=== PATIENT | female | born 1950 | race Caucasian/White ===

== ENCOUNTER 2021-06-07 12:49 | Outpatient (REF) | payer BC, SELFPAY | END 2021-06-07 12:50 | disposition home or self-care (01) | LOC: HO.BBR 12:49 | PROVIDERS: PCP Internal Medicine; Visit Provider Internal Medicine | DX: Z13.89 Encounter for screening for other disorder (principal) ==

== ENCOUNTER 2021-08-08 10:04 | Outpatient (REF) | payer MEDICARE, SELFPAY | END 2021-08-08 10:05 | disposition home or self-care (01) | LOC: HO.BBR 10:04 | PROVIDERS: Visit Provider Internal Medicine | DX: Z13.89 Encounter for screening for other disorder (principal) ==

== ENCOUNTER 2021-10-19 13:07 | Outpatient (REF) | payer MEDICARE, SELFPAY | END 2021-10-19 13:08 | disposition home or self-care (01) | LOC: HO.BBR 13:07 | PROVIDERS: Visit Provider Internal Medicine | DX: Z13.89 Encounter for screening for other disorder (principal) ==

== ENCOUNTER 2021-10-27 10:10 | Outpatient (REF) | payer MEDICARE, SELFPAY | END 2021-10-27 10:11 | disposition home or self-care (01) | LOC: HO.BBR 10:10 | PROVIDERS: Visit Provider Internal Medicine | DX: Z13.89 Encounter for screening for other disorder (principal) ==

== ENCOUNTER 2021-11-06 10:03 | Outpatient (REF) | payer MEDICARE, SELFPAY | END 2021-11-06 10:04 | disposition home or self-care (01) | LOC: HO.BBR 10:03 | PROVIDERS: Visit Provider Internal Medicine | DX: Z13.89 Encounter for screening for other disorder (principal) ==

== ENCOUNTER 2021-11-13 10:03 | Outpatient (REF) | payer MEDICARE, SELFPAY | END 2021-11-13 10:04 | disposition home or self-care (01) | LOC: HO.BBR 10:03 | PROVIDERS: Visit Provider Internal Medicine | DX: Z13.89 Encounter for screening for other disorder (principal) ==

== ENCOUNTER 2022-04-24 09:09 | Outpatient (REF) | payer MEDICARE, SELFPAY | END 2022-04-24 09:10 | disposition home or self-care (01) | LOC: HO.BBR 09:09 | PROVIDERS: Visit Provider Internal Medicine | DX: Z13.89 Encounter for screening for other disorder (principal) ==

== ENCOUNTER 2022-05-24 08:46 | Outpatient (REF) | payer MEDICARE, SELFPAY | END 2022-05-24 08:47 | disposition home or self-care (01) | LOC: HO.BBR 08:46 | PROVIDERS: Visit Provider Internal Medicine | DX: Z13.89 Encounter for screening for other disorder (principal) ==

== ENCOUNTER 2022-06-21 09:39 | Outpatient (REF) | payer MEDICARE, SELFPAY | END 2022-06-21 09:40 | disposition home or self-care (01) | LOC: HO.BBR 09:39 | PROVIDERS: Visit Provider Internal Medicine | DX: Z13.89 Encounter for screening for other disorder (principal) ==

== ENCOUNTER 2022-08-16 08:46 | Outpatient (REF) | payer MEDICARE, SELFPAY | END 2022-08-16 08:47 | disposition home or self-care (01) | LOC: HO.BBR 08:46 | PROVIDERS: Visit Provider Internal Medicine | DX: Z13.89 Encounter for screening for other disorder (principal) ==

== ENCOUNTER 2023-05-21 13:42 | Outpatient (REF) | payer MEDICARE, SELFPAY | END 2023-05-21 13:43 | disposition home or self-care (01) | LOC: HO.BBR 13:42 | PROVIDERS: Visit Provider Internal Medicine | DX: Z13.89 Encounter for screening for other disorder (principal) ==

== ENCOUNTER 2023-09-06 09:00 | Outpatient (REF) | payer MEDICARE, SELFPAY | END 2023-09-06 09:01 | disposition home or self-care (01) | LOC: HO.BBR 09:00 | PROVIDERS: PCP Internal Medicine; Visit Provider Internal Medicine Gastroenterology | DX: Z13.89 Encounter for screening for other disorder (principal) ==

== ENCOUNTER 2024-01-21 09:03 | Outpatient (REF) | payer MEDICARE, SELFPAY | END 2024-01-21 09:04 | disposition home or self-care (01) | LOC: HO.BBR 09:03 | PROVIDERS: PCP Internal Medicine; Visit Provider Internal Medicine Gastroenterology | DX: Z13.89 Encounter for screening for other disorder (principal) ==

== ENCOUNTER 2024-05-26 08:55 | Outpatient (REF) | payer MEDICARE, SELFPAY | END 2024-05-26 08:56 | disposition home or self-care (01) | LOC: HO.BBR 08:55 | PROVIDERS: PCP Internal Medicine; Visit Provider Internal Medicine Gastroenterology | DX: Z13.89 Encounter for screening for other disorder (principal) ==

== ENCOUNTER 2024-09-30 08:55 | Outpatient (REF) | payer MEDICARE, SELFPAY | END 2024-09-30 08:56 | disposition home or self-care (01) | LOC: HO.BBR 08:55 | PROVIDERS: PCP Internal Medicine; Visit Provider Internal Medicine Gastroenterology | DX: Z13.89 Encounter for screening for other disorder (principal) ==

== ENCOUNTER 2024-12-08 09:01 | Outpatient (REF) | payer MEDICARE, SELFPAY ==
--- OUTSIDE RECORDS SUMMARY | 2024-12-08 09:46 | XMS_ITS | Clinical Summary ---
Author Organization [facility] Address [address] [place] [address] Phone Care Team Providers Care Business Systems Administrator Name Role Phone Gustavo Kyle MD Primary Care Provider + [phone] Medications Hospital, Clinic, or Other Facility Administered Medication Ordered Dose Route Frequency Start Date End Date Status sod picosulf-mag ox-citric ac 10 mg-3.5 gram- 12 gram/175 mL solution 175 mLIndications:Change in bowel habit 175 mL oral 2 times daily 09/01/2024 Active Active Problems Problem Noted Date Diagnosed Date DM (diabetes mellitus) (CMS/HCC V24, CMS/HCC V28 ) Hemochromatosis Assessment & Plan (09/01/2024 8:43 AM EST): Getting phlebotomy [id number] PCP orders Need last lab results HTN (hypertension) Hyperlipidemia Encounters Date Type Department Care Team Description 10/07/2024 Telephone Gastroenterology - [address] [address] Mir Sales MD 09/30/2024 Telephone Gastroenterology - [address] [address] Mir Sales MD 09/29/2024 Lab Requisition [facility] - Main Lab 299 [facility] [address] Mir Sales MD Diarrhea, unspecified 09/25/2024 Telephone Gastroenterology - [address] [address] Mir Sales MD 09/21/2024 Telephone Gastroenterology - 299 [place] [address] [facility] [address] [place] [address] Mir Sales MD 09/16/2024 Telephone Gastroenterology - [address] [place] [address] Cadence Kilpatrick MA from Last 3 Months Surgical History Surgery Date Site/Laterality Comments COLONOSCOPY 03/08/2020 - 04/06/2020 10 years TOTAL KNEE ARTHROPLASTY Medical History Medical History Date Comments HTN (hypertension) DM (diabetes mellitus) (CMS/HCC V24, CMS/HCC V28 ) Hyperlipidemia Hemochromatosis Family History Medical History Relation Name Comments Breast cancer Mother's Sister Pancreatic cancer Other Relation Name Status Comments Mother's Sister Alive Other Social History Tobacco Use Types Packs/Day Years Used Date Smoking Tobacco: Never Assessed Comments No Sex and Gender Information Value Date Recorded Sex Assigned at Female 04/29/2024 10:54 AM EDT Legal Sex Female 9:22 AM EST Gender Identity Not on file Sexual Orientation Not on file Obstetrics History Para Term AB IAB SAB Ectopic Multiple Livin g Live Births 4 Last Filed Vital Signs Vital Sign Reading Time Taken Comments Blood Pressure 134/72 06/05/2022 10:12 AM EST Si tting L Arm Pulse - - Temperature - - Respiratory Rate - - Oxygen Saturation - - Inhaled Oxygen Concentration - - Weight 63 kg (139 lb) 09/01/2024 8:21 AM EST Height 167.6 cm (5' 6 ) 09/01/2024 8:21 AM EST Body Mass Index 22.44 09/01/2024 8:21 AM EST Plan of Treatment Health Maintenance Due Date Last Done Comments Diabetes: Annual GFR (Glomerular Filtration Rate) 1952 Diabetes: Annual Foot Exam 1962 Diabetes: Annual Retina Eye Exam 1962 DTaP,Tdap,and Td Vaccines (1 - Tdap) 1971 Cholesterol Screening (Lipid Panel) 06/10/2022 Depression Screening 06/10/2022 Falls Risk Assessment 06/10/2022 Hepatitis C Screening 06/10/2022 Medicare Annual Wellness Visit 06/10/2022 Social Influencers of Health Screening 06/10/2022 Diabetes: Annual Urine Albumin-Creatinine Ratio (uACR) 08/06/2024 Diabetes: Blood Sugar Control Test (HGBA1C) 08/06/2024 Hypertension/CHF/CAD Annual BMP Blood Test 08/06/2024 COVID-19 Vaccine ( season) 2024 05/30/2024, 11/17/2023, 06/13/2022, Additional history exists Breast Cancer Screening 05/25/2026 05/25/20, 05/02/2023, 04/30/2022, Additional history exists Osteoporosis Screening (Bone Density Screening) 05/25/2034 05/25/2024, 04/24/2021 Colorectal Cancer Screening: Colonoscopy 09/29/2034 09/29/2024, 03/31/2020 Pneumococcal Vaccine: 50+ Years Completed 04/06/2019, 03/17/2018 Zoster Vaccines Completed 06/13/2020, 04/12/2020 RSV Immunization Adult Patients Completed 04/16/2023 Influenza Vaccine Completed 04/27/2024, , 04/11/2022, Additional history exists HIB Vaccines Aged Out No longer eligi ble based on patient's age to complete this topic HPV Vaccines Aged Out No longer eligi ble based on patient's age to complete this topic Hepatitis A Vaccines Aged Out No long er eligible based on patient's age to complete this topic Hepatitis B Vaccines Aged Out No long er eligible based on patient's age to complete this topic IPV Vaccines Aged Out No longer eligi ble based on patient's age to complete this topic MMR Vaccines Aged Out No longer eligi ble based on patient's age to complete this topic Meningococcal ACWY Vaccine Aged Out N o longer eligible based on patient's age to complete this topic Meningococcal B Vaccine Aged Out No l onger eligible based on patient's age to complete this topic RSV Immunization Patients Under 20 months Aged Out No longer eligible based on patient's age to complete this topic Varicella Vaccines Aged Out No longer eligible based on patient's age to complete this topic Procedures Procedure Name Priority Date/Time Associated Diagnosis Comments EXTERNAL COLONOSCOPY REPORT Routine 09/29/2024 5:04 PM EDT TISSUE EXAM Routine 09/29/2024 Diarrhea, unspecified BD BONE DENSITY DXA AXIAL SKELETON Routine 05/25/2024 9:15 AM EST Other specified disorders of bone density and structure, unspecified site Asymptomatic menopausal state MG MAMMO DIGITAL SCREENING W ZI BILAT Routine 05/25/2024 9:12 AM EST Encounter for screening mammogram for breast cancer from Last 3 Months or Most Recently Relevant to Health Maintenance Results * External Colonoscopy Report (09/29/2024 5:04 PM EDT) Anatomical Region Laterality Modality Endoscopy us Historical Provider GI~PROCEDURE ORDERABLES F inal Result * Tissue Exam (09/29/2024) Final Diagnosis A. Ascending Colon, biopsy: Benign colonic mucosa with no specific pathologic change. No colitis identified. B. Descending Colon, biopsy: Benign colonic mucosa with no specific pathologic change. No colitis identified. 09/30/2024 3:36 PM EDT [facility] Clinical Information Change in bowel habits, chronic diarrhea R/O Microscopic Colitis 09/30/2024 3:36 PM EDT [facility] Gross Description A. Large Intestine, Right/Ascendin g Colon, biopsy: Labeled right colon biopsy . Received in formalin are three irregular an mucosal tissue fragments, ranging from less than 0.1 cm 0.2 cm in greatest dimension, which are wrapped in paper and submitted in toto in one cassette, three pieces, multiple levels on one slide. B. Large Intestine, Left/Descendin g Colon, biopsy: Labeled left colon biopsy . Received in formalin are three irregular an mucosal tissue fragments, ranging from 0.1 cm 0.3 cm in greatest dimension, which are wrapped in paper and submitted total one cassette, three pieces, multiple levels on one slide. ALEX 09/30/2024 3:36 PM EDT [facility] Disclaimer Unless otherwise specified, all tissue is 10% NB formalin fixed and paraffin embedded. 09/30/2024 3:36 PM EDT [facility] Tissue Descending colon structure / Unknown 09/29/2024 09/29/2024 4:21 PM EDT Tissue specimen (specimen) Descending colon structure / Unknown 09/29/2024 09/29/2024 4:21 PM EDT us Mir Sales MD LAB PATHOLOGY ORDERABLES Ping rose mary Result [facility] [address] [place] [address], * BD Bone Density DXA Axial Skeleton (05/25/2024 9:15 AM EST) Anatomical Region Laterality Modality Wrist, Hip, L-spine Bone Densito metry 05/25/2024 9:17 AM EST Addenda Addendum by Brett Pruitt MD on 05/25/2024 9:19 AM EST HISTORY: ??The patient is a 74-year-old postmenopausal female with clinical concern for metabolic bone disease. ??The patient has undergone previous bilateral hip replacement surgery. FINDINGS: ??Dual energy x-ray absorptiometry of the lumbar spine is performed. The mean bone mineral density at L1-2 is 1.261 gm/cm2 which is 108% of that of young normals and 133% of that of age matched controls. This yields a T-score of 0.8 and a Z-score of 2.6 and there is therefore no evidence of osteoporosis or osteopenia here. IMPRESSION: There is no evidence of osteoporosis or osteopenia. Code 93715 CT Teleradiology -------- FINAL REPORT -------- Dictated By: Brett Pruitt Dictated Date: 05/25/2024 09:17 ET Assigned Physician: Brett Pruitt Reviewed and Electronically Signed By: Brett Pruitt Signed Date: 05/25/2024 09:19 ET Workstation ID: [id number] Transcribed By: Self Edit Transcribed Date: 05/25/2024 09:17 ET Impressions 05/25/2024 9:19 AM EST There is no evidence of osteoporosis or osteopenia. Code 62212 CT Teleradiology -------- FINAL REPORT -------- Dictated By: Brett Pruitt Dictated Date: 05/25/2024 09:17 ET Assigned Physician: Brett Pruitt Reviewed and Electronically Signed By: Brett Pruitt Signed Date: 05/25/2024 09:19 ET Workstation ID: [id number] Transcribed By: Self Edit Transcribed Date: 05/25/2024 09:17 ET Narrative 05/25/2024 9:19 AM EST HISTORY: ??The patient is a 74-year-old postmenopausal female with clinical concern for metabolic bone disease. ??The patient has undergone previous bilateral hip replacement surgery. FINDINGS: ??Dual energy x-ray absorptiometry of the lumbar spine is performed. The mean bone mineral density at L1-2 is 1.261 gm/cm2 which is 108% of that of young normals and 133% of that of age matched controls. This yields a T-score of 0.8 and a Z-score of 2.6 and there is therefore no evidence of osteoporosis or osteopenia here. Procedure Note Brett Pruitt MD - 05/25/2024 HISTORY: The patient is a 74-year-old postmenopausal female with clinicalconcern for metabolic bone disease. The patient has undergone previousbilateral hip replacement surgery. FINDINGS: Dual energy x-ray absorptiometry of the lumbar spine isperformed. The mean bone mineral density at L1-2 is 1.261 gm/cm2 which is108% of that of young normals and 133% of that of age matched controls.This yields a T-score of 0.8 and a Z- score of 2.6 and there is thereforeno evidence of osteoporosis or osteopenia here. IMPRESSION: There is no evidence of osteoporosis or osteopenia. Code 40443 CT Teleradiology -------- FINAL REPORT -------- Dictated By: Brett Pruitt Dictated Date: 05/25/2024 09:17 ET Assigned Physician: Brett Pruitt Reviewed and Electronically Signed By: Brett Pruitt Signed Date: 05/25/2024 09:19 ET Workstation ID: [id number] Transcribed By: Self Edit Transcribed Date: 05/25/2024 09:17 ET Gustavo Kyle MD IMG DXA PROCEDURES Edited Re sult - Final * MG Mammo Digital Screening w Zi bilat (05/25/2024 9:12 AM EST) Anatomical Region Laterality Modality Breast Bilateral Mammography 05/25/2024 10:0 6 AM EST Addenda Addendum by Marisa Carr MD on 05/25/2024 10:07 AM EST HISTORY: Screening. COMPARISON: 05/07/23, 05/02/23, 04/30/22, 04/24/21 ?? TECHNIQUE: Bilateral digital breast tomosynthesis was performed in the CC and MLO projections. Computer aided detection with Marco Vasco 3D 3.1 was employed. BREAST DENSITY: B - There are scattered areas of fibroglandular density. FINDINGS: No suspicious masses, grouped microcalcifications, or areas of architectural distortion are seen. The skin and vascularity are unremarkable. IMPRESSION: Stable mammographic appearance of the breasts. No evidence of malignancy is seen. A negative mammogram in the presence of a clinically suspicious palpable abnormality does not preclude the possibility of malignancy or alter the indications for biopsy. BI-RADS CATEGORY: 1 - NEGATIVE RECOMMENDATION: Screening bilateral mammogram is recommended in 1 year. Mammo Location: [facility], [address] [place] [address], [id number], . -------- FINAL REPORT -------- Dictated By: Marisa Carr Dictated Date: 05/25/2024 10:06 ET Assigned Physician: Marisa Carr Reviewed and Electronically Signed By: Marisa Carr Signed Date: 05/25/2024 10:07 ET Workstation ID: [id number] Transcribed By: Self Edit Transcribed Date: 05/25/2024 10:06 ET Impressions 05/25/2024 10:07 AM EST Stable mammographic appearance of the breasts. No evidence of malignancy is seen. A negative mammogram in the presence of a clinically suspicious palpable abnormality does not preclude the possibility of malignancy or alter the indications for biopsy. BI-RADS CATEGORY: 1 - NEGATIVE RECOMMENDATION: Screening bilateral mammogram is recommended in 1 year. Mammo Location: [facility], [address] [place] [address], [id number], . -------- FINAL REPORT -------- Dictated By: Marisa Carr Dictated Date: 05/25/2024 10:06 ET Assigned Physician: Marisa Carr Reviewed and Electronically Signed By: Marisa Carr Signed Date: 05/25/2024 10:07 ET Workstation ID: [id number] Transcribed By: Self Edit Transcribed Date: 05/25/2024 10:06 ET Narrative 05/25/2024 10:07 AM EST HISTORY: Screening. COMPARISON: 05/07/23, 05/02/23, 04/30/22, 04/24/21 ?? TECHNIQUE: Bilateral digital breast tomosynthesis was performed in the CC and MLO projections. Computer aided detection with Marco Vasco 3D 3.1 was employed. BREAST DENSITY: B - There are scattered areas of fibroglandular density. FINDINGS: No suspicious masses, grouped microcalcifications, or areas of architectural distortion are seen. The skin and vascularity are unremarkable. Gustavo Kyle MD IMG BI PROCEDURES Edited Res ult - Final from Last 3 Months or Most Recently Relevant to Health Maintenance Insurance BLUE CROSS - [place] MEDICARE ADVANTAGE Advance Directives Documents on File Type Date Recorded Patient Hop Picker Expl anation Health Care Decision (hx) 05/09/2021 AD CHRISTIE DIRECTIVE Health Care Decision (hx) 05/09/2021 AD CHRISTIE DIRECTIVE Health Care Decision (hx) 05/09/2021 AD CHRISTIE DIRECTIVE Health Care Decision (hx) 05/09/2021 AD CHRISTIE DIRECTIVE Health Care Decision (hx) 05/09/2021 AD CHRISTIE DIRECTIVE Health Care Decision (hx) 05/09/2021 AD CHRISTIE DIRECTIVE Health Care Decision (hx) 05/09/2021 AD CHRISTIE DIRECTIVE Health Care Decision (hx) 05/09/2021 AD CHRISTIE DIRECTIVE Health Care Decision (hx) 05/09/2021 AD CHRISTIE DIRECTIVE Health Care Decision (hx) 05/09/2021 AD CHRISTIE DIRECTIVE Health Care Decision (hx) 05/09/2021 AD CHRISTIE DIRECTIVE Health Care Decision (hx) 05/09/2021 AD CHRISTIE DIRECTIVE Health Care Decision (hx) 05/09/2021 AD CHRISTIE DIRECTIVE Health Care Decision (hx) 05/09/2021 AD CHRISTIE DIRECTIVE Care Teams Business Systems Administrator Relationship Specialty Start Date End Date Gustavo Kyle MD [address] [place] [phone] PCP - General Internal Medicine 07/08/12
== END 2024-12-08 09:02 | disposition home or self-care (01) ==
LOC: HO.BBR 09:01
PROVIDERS: PCP Internal Medicine; Visit Provider Internal Medicine
DX: Z13.89 Encounter for screening for other disorder (principal)

== ENCOUNTER 2025-02-10 09:07 | Outpatient (REF) | payer MEDICARE, SELFPAY ==
--- OUTSIDE RECORDS SUMMARY | 2025-02-10 09:25 | XMS_ITS | Clinical Summary ---
Author Organization [facility] Address [address] [place] [address] Phone Care Team Providers Care Editor Department Name Role Phone Gustavo Kyle MD Primary Care Provider + [phone] Medications Hospital, Clinic, or Other Facility Administered Medication Ordered Dose Route Frequency Start Date End Date Status sod picosulf-mag ox-citric ac 10 mg-3.5 gram- 12 gram/175 mL solution 175 mLIndications:Change in bowel habit 175 mL oral 2 times daily 09/01/2024 Active Active Problems Problem Noted Date Diagnosed Date DM (diabetes mellitus) (CMS/HCC V24, CMS/[facility] V28 ) Hemochromatosis Assessment & Plan (09/01/2024 8:43 AM EST): Getting phlebotomy [id number] PCP orders Need last lab results HTN (hypertension) Hyperlipidemia Surgical History Surgery Date Site/Laterality Comments COLONOSCOPY 03/08/2020 - 04/06/2020 10 years TOTAL KNEE ARTHROPLASTY Medical History Medical History Date Comments HTN (hypertension) DM (diabetes mellitus) (CMS/HCC V24, CMS/[facility] V28 ) Hyperlipidemia Hemochromatosis Family History Medical [...] Tdap) 1971 Cholesterol Screening (Lipid Panel) 06/10/2022 Falls Risk Assessment 06/10/2022 Hepatitis C Screening 06/10/2022 Medicare Annual Wellness Visit 06/10/2022 Social Influencers of Health Screening 06/10/2022 Depression Screening 07/08/2024 Diabetes: Annual Urine Albumin-Creatinine Ratio (uACR) 08/06/2024 Diabetes: Blood Sugar Control Test (HGBA1C) 08/06/2024 Hypertension/CHF/CAD Annual BMP Blood Test 08/06/2024 COVID-19 Vaccine ( season) 2024 05/30/2024, 11/17/2023, 06/13/2022, Additional history exists Influenza Vaccine (#1) 2025 , 04/16/2023, 04/11/2022, Additional history exists Breast Cancer Screening 05/25/2026 05/25/20 24, 05/02/2023, 04/30/2022, Additional history exists Osteoporosis Screening (Bone Density Screening) 05/25/2034 05/25/2024, 04/24/2021 Colorectal Cancer Screening: Colonoscopy 09/29/2034 09/29/2024, 03/31/2020 Pneumococcal Vaccine: 50+ Years Completed 04/06/2019, 03/17/2018 Zoster Vaccines Completed 06/13/2020, 04/12/2020 RSV Immunization Adult Patients Completed 04/16/2023 HIB Vaccines Aged Out No longer eligi [...] COLONOSCOPY REPORT Routine 09/29/2024 5:04 PM EDT BD BONE DENSITY DXA AXIAL SKELETON Routine [...] Provider GI~PROCEDURE ORDERABLES F inal Result * BD Bone Density DXA Axial Skeleton (05/25/2024 9:15 AM EST) Anatomical Region Laterality Modality Wrist, Hip, L-spine Bone Densito metry 05/25/2024 9:17 AM EST Addenda Addendum by Brett Pruitt MD on 05/25/2024 9:19 AM EST HISTORY: The patient is a 74-year-old postmenopausal female with clinical concern for metabolic bone disease. The patient has undergone previous bilateral hip replacement surgery. FINDINGS: Dual energy x-ray [...] no evidence of osteoporosis or osteopenia. Code 06616 CT Teleradiology -------- FINAL REPORT -------- Dictated By: Brett Pruitt Dictated Date: 05/25/2024 09:17 ET Assigned Physician: Brett Pruitt Reviewed and Electronically Signed By: Brett Pruitt Signed Date: 05/25/2024 09:19 ET Workstation ID: [id number] Transcribed By: Self Edit Transcribed Date: 05/25/2024 09:17 ET Impressions 05/25/2024 9:19 AM EST There is no evidence of osteoporosis or osteopenia. Code 92112 CT Teleradiology -------- FINAL REPORT -------- Dictated By: Brett Pruitt Dictated Date: 05/25/2024 09:17 ET Assigned Physician: Brett Puritt Reviewed and Electronically Signed By: Brett Pruitt Signed Date: 05/25/2024 09:19 ET Workstation ID: [id number] Transcribed By: Self Edit Transcribed Date: 05/25/2024 09:17 ET Narrative 05/25/2024 9:19 AM EST HISTORY: The patient is a 74-year-old postmenopausal female with clinical concern for metabolic bone disease. The patient has undergone previous bilateral hip replacement surgery. FINDINGS: Dual energy x-ray [...] no evidence of osteoporosis or osteopenia. Code 17490 CT Teleradiology -------- FINAL REPORT -------- Dictated By: Brett Pruitt Dictated Date: 05/25/2024 09:17 ET Assigned Physician: Brett Pruitt Reviewed and Electronically Signed By: Brett Pruitt Signed Date: 05/25/2024 09:19 ET Workstation ID: [id number] Transcribed By: Self Edit Transcribed Date: 05/25/2024 09:17 ET us Gustavo Kyle MD IMG DXA PROCEDURES Edited Re sult - Final * MG Mammo Digital Screening w Zi bilat (05/25/2024 9:12 AM EST) Anatomical Region Laterality Modality Breast Bilateral Mammography 05/25/2024 10:0 6 AM EST Addenda Addendum by Marisa Carr MD on 05/25/2024 10:07 AM EST HISTORY: Screening. COMPARISON: 05/07/23, 05/02/23, 04/30/22, 04/24/21 TECHNIQUE: Bilateral digital breast tomosynthesis was performed in the CC and MLO projections. Computer aided detection with BioWizard AI 3D 3.1 was employed. BREAST DENSITY: B [...] year. Mammo Location: [facility], [address] [place] [address], [id number], . -------- FINAL REPORT -------- Dictated By: Marisa Carr Dictated Date: 05/25/2024 10:06 ET Assigned Physician: Marisa Carr Reviewed and Electronically Signed By: Marisa Carr Signed Date: 05/25/2024 10:07 ET Workstation ID: [id number] Transcribed By: Self Edit Transcribed Date: 05/25/2024 [...] year. Mammo Location: [facility], [address] [place] [address], [address], . -------- FINAL REPORT -------- Dictated By: Marisa Carr Dictated Date: 05/25/2024 10:06 ET Assigned Physician: Marisa Carr Reviewed and Electronically Signed By: Marisa Carr Signed Date: 05/25/2024 10:07 ET Workstation ID: [id number] Transcribed By: Self Edit Transcribed Date: 05/25/2024 10:06 ET Narrative 05/25/2024 10:07 AM EST HISTORY: Screening. COMPARISON: 05/07/23, 05/02/23, 04/30/22, 04/24/21 TECHNIQUE: Bilateral digital breast tomosynthesis was performed in the CC and MLO projections. Computer aided detection with [employer]light 3D 3.1 was employed. BREAST DENSITY: B [...] Documents on File Type Date Recorded Patient Cook Morning Expl anation Health Care Decision (hx) 05/09/2021 [...] (hx) 05/09/2021 AD CHRISTIE DIRECTIVE Care Teams Editor Department Relationship Specialty Start Date End Date Gustavo Kyle MD [address] [place] [address] PCP - General Internal Medicine 07/08/12
--- OUTSIDE RECORDS SUMMARY | 2025-02-10 09:25 | XMS_ITS | Clinical Summary ---
Author Organization [facility] Address [address] [facility] [address] [place] [phone] Phone Care Team Providers Care Film And Video Editor Name Role Phone Gustavo Kyle MD Primary Care Provider [phone] Allergies No known active allergies Active Problems No known active problems Social History Tobacco Use Types Packs/Day Years Used Date Smoking Tobacco: Never Assessed Education Answer Date Recorded Are you interested in more education? Not on daniella e 11/02/2022 Are you concerned about learning? Not on file 11/02/2022 No 11/02/2022 No 11/02/2022 Digital Access Answer Date Recorded No 12/01/2022 No 12/01/2022 Reliable internet access at home? Not on file 12/01/2022 Device with a working camera? Not on file Comments Unknown Sex and Gender Information Value Date Recorded Sex Assigned at Not on file Legal Sex Female 11:31 AM EDT Gender Identity Not on file Sexual Orientation Not on file Last Filed Vital Signs Vital Sign Reading Time Taken Comments Blood Pressure 129/76 03/22/2018 3:40 PM EDT Pulse 67 03/22/2018 3:40 PM EDT Temperature 36.8 C (98.2 F) 03/22/2018 3:40 PM EDT Respiratory Rate 18 03/22/2018 3:40 PM EDT Oxygen Saturation 96% 03/22/2018 3:40 PM EDT Inhaled Oxygen Concentration - - Weight 61.2 kg (135 lb) 03/22/2018 11:46 AM EDT Height 167.6 cm (5' 6 ) 03/22/2018 11:46 AM EDT Body Mass Index 21.79 03/22/2018 11:46 AM EDT Plan of Treatment Health Maintenance Due Date Last Done Comments Adult Td,Tdap Booster 1952 LIPID PANEL 1952 DEPRESSION SCREENING 1964 SMOKING Hx and SMOKELESS TOBACCO SCREENING 1965 HEPATITIS C SCREENING 1970 MAMMOGRAM 1992 COLOGUARD 1997 COLONOSCOPY 1997 COLORECTAL CANCER SCREENING 1997 FIT TEST 1997 FOBT 1997 SIGMOIDOSCOPY 1997 VIRTUAL COLONOSCOPY 1997 OSTEOPOROSIS SCREENING INITI AL (ONE-TIME) 2017 COVID-19 VACCINE (2 - 4-2 5 season) 2024 09/26/2020 RSV VACCINE (1 - 1-dose 75+ series) 2027 PNEUMOCOCCAL VACCINES (50+ years) Completed 04/06/2019, 03/17/2018 ZOSTER VACCINES Completed 06/13/2020, 04/12/2020 HEPATITIS A VACCINES Aged Out No long er eligible based on patient's age to complete this topic HIB VACCINES Aged Out No longer eligi ble based on patient's age to complete this topic MENINGOCOCCAL VACCINES (ACWY) Aged Out No longer eligible based on patient's age to complete this topic MENINGOCOCCAL VACCINES (B) Aged Out N o longer eligible based on patient's age to complete this topic Medical Devices Not on file Insurance BLUE CROSS [place] MEDICARE PPO BLUE REPLACEMENT Care Teams Film And Video Editor Relationship Specialty Start Date End Date Gustavo Kyle MD [address] [place] [address] PCP - General Internal Medicine 03/22/18 Additional Source Comments The information contained in this document represents components of the legal health record. It is not the complete legal health record.[facility]
--- OUTSIDE RECORDS SUMMARY | 2025-02-10 09:25 | XMS_ITS | Patient Health Record ---
Author Organization [employer] [facility] Address [address] [place] [address] Care Team Providers Care Fire Prevention Inspector Name Role Phone Gustavo Kyle MD Primary Care Provider Unavail able Lakeshia Sharp Unavailable [phone] Allergies No Known Allergies Results Component Value Reference Range Notes [id number] IGP No Culture 30 Plus Reviewed date:06/02/2024 04:46:53 PM Interpretation: Performing Lab:[facility] [place], [address], [address], [place], Phone - [phone], Director - [facility] Notes/Report: Clinical Information:Vaginal/Cervical, LMP: Men o [id number] Dates / Results....04/03/18 NIL, Neg HPV Other..............Post Menopausal No. of containers..01 ThinPrep Vial DIAGNOSIS: NEGATIVE FOR IN TRAEPITHELIAL LESION OR MALIGNANCY. Specimen adequacy: Satisfactory for evaluation. Endocervical and/or squamous metaplastic cells (endocervical component) are present. Clinician provided ICD10: Z0 1.419 Performed by: Felicia bazzi, Marine Technician (ASCP) . . Note: The Pap smear is a screening test designed to aid in the detection of premalignant and malignant conditions of the uterine cervix. It is not a diagnostic procedure and should not be used as the sole means of detecting cervical cancer. Both false-positive and false-negative reports do occur. . Test Methodology: This liquid based ThinPrep(R) pap test was screened with the use of an image guided system. HPV Aptima Negative Negative This nucleic acid amplification test detects fourteen high-risk HPV types (16,18,31,33,35,39,45,51,52,56,58 ,59,66,68) without differentiation. HPV Genotype Reflex Criteria not met, HPV Genotype not performed. PDF Report Reviewed date:06/02/2024 04:46:40 PM Interpretation: Performing Lab:[facility], [address], [address], [place], Phone - [phone], [facility] Notes/Report: Clinical Information:Vaginal/Cervical, LMP: Men o [id number] Dates / Results....04/03/18 NIL, Neg HPV Other..............Post Menopausal No. of containers..01 ThinPrep Vial Reason For Referral No Information Medications Medication SIG (Take, Route, Fr equency, Duration) Notes Start Date End Date Status Simvastatin 20 MG 1 tablet in the even ing Orally Once a day 09/25/2012 Active metFORMIN HCl 500 MG TAKE 1 TABLET BY MO UT EVERY DAY Oral; Duration: 90 Active Celecoxib 200 MG TAKE 1 CAPSULE BY MO UT 2 TIMES A DAY WITH MEAL Oral; Duration: 90 Active Lisinopril 30 MG 1 tablet Orally Once a day Active Social History Tobacco Use: Social History Observation Description Date Details (start date - stop date) Never Smoker NA - NA Sexual History Question Answer Notes Had sex in the past 12 months (vaginal, oral, or anal)? Yes with Men only Prevention strategies discussed: Other Tobacco use other than smoking: Question Answer Notes Are you an other tobacco user? No AUDIT-C (Standard) Question Answer Notes Did you have a drink contain ing alcohol in the past year? Yes How often did you have six o r more drinks on one occasion in the past year? Never (0 point) How many drinks did you have on a typical day when you were drinking in the past year? 1 or 2 drinks (0 point) How often did you have a dri nk containing alcohol in the past year? 2 to 4 times a month (2 points) Points 2 Interpretation Negative Tobacco Control (Standard) Question Answer Notes Tobacco use: Nonsmoker Section Notes: MARITAL STATUS: CHILDREN: 4 Children LIVES WITH: spouse OCCUPATION: employed full-time NUTRITION: average diet EXERCISE: regular weight lifting / resistance exercise, regular cardio SEXUAL ACTIVITY: monogamous relationship. CONTRACEPTION: tubal ligation .CE: Smoking: Never a smoker .CE: ALCOHOL: socially drinks alcohol TEXT MESSAGING WHILE DRIVING: no SUNSCREEN: yes ILLICIT DRUGS: no SEATBEALT: yes Problems Problem Type SNOMED Code ICD Code Onset Dates Problem Status W/U Status Risk Notes Problem Postmenopausal atrophic vaginitis (78625838) Postmenopausal atrophic vaginitis (N95.2) Active confirmed Problem Incomplete uterovaginal prolapse (971418484) Incomplete uterovaginal prolapse (N81.2) Active confirmed Problem Herniation of rectum into vagina (765975179) Rectocele (N81.6) Active confirmed Problem Cystocele (263922601) Cystocele, unspecified (N81.10) Active confirmed Problem Abnormal findings on diagnostic imaging of breast (072735353) Other abnormal and inconclusive findings on diagnostic imaging of breast (R92.8) Active confirmed Problem Hyperlipidemia (59574347) Other and unspecified hyperlipidemia (272.4) Active confirmed Major Problem Benign essential hypertension (0414046) Essential hypertension, benign (401.1) Active confirmed Major Problem Postmenopausal atrophic vaginitis (47108373) Postmenopausal atrophic vaginitis (627.3) Active confirmed Diag Problem Osteoarthritis (078460971) Osteoarthrosis, unspecified whether generalized or localized, unspecified site (715.90) Active confirmed Major Problem Gynecological examination normal (405347049736730) Routine gynecological examination (V72.31) Active confirmed Major Problem Screening for malignant neoplasm of colon (837206780) Special screening for malignant neoplasms, colon (V76.51) Active confirmed Major Problem Hemochromatosis (392904231) Other hemochromatosis (275.03) Active confirmed Major Vital Signs Temperature 98.1 degrees Fahrenheit 05/25/2024 Blood pressure diastolic 82 mm Hg 05/25/2024 Height 66 in 05/25/2024 Blood pressure systolic 134 mm Hg 05/25/2024 Weight 134 lbs 05/25/2024 BMI 21.63 kg/m2 05/25/2024 Encounters Encounter Location Date Provider Diagnosis [address] [place] [address] 05/25/2024 Lakeshia Sharp Encounter for gynecological examination (general) (routine) without abnormal findings Z01.419 ; Encounter for screening mammogram for malignant neoplasm of breast Z12.31 ; Incomplete uterovaginal prolapse N81.2 ; Rectocele N81.6 ; Postmenopausal atrophic vaginitis N95.2 and Other specified disorders of bone density and structure, multiple sites M85.89 Assessments Encounter Date Diagnosis (ICD Code) Assessment Notes Treatment Notes Treatment Clinical Notes Section Notes 05/25/2024 Encounter for gynecological examination (general) (routine) without abnormal findings (ICD-10 - Z01.419) PAP TEST WITH HPV TYPING WAS OBTAINED. 05/25/2024 Encounter for screening mammogram for malignant neoplasm of breast (ICD-10 - Z12.31) REGULAR MAMMOGRAMS AND SBE'S WERE RECOMMENDED. 05/25/2024 Incomplete uterovaginal prolapse (ICD-10 - N81.2) DISCUSSED FINDINGS AGAIN. NO WORSENING OF PROLAPSE. PAT REMAINS ASYMPTOMATIC. 05/25/2024 Rectocele (ICD-10 - N81.6) RECTOCELE HAS WORSENED BUT PAT REMAINS ASYMPTOMATIC. DISCUSSED PELVIC SUPPORT PROBLEMS AND PAT WAS GIVEN BOOKLET. 05/25/2024 Postmenopausal atrophic vaginitis (ICD-10 - N95.2) DISCUSSED FINDINGS, DX AND TX OPTIONS. PAT IS ASYMPTOMATIC AND WOULD RATHER USE LUBRICANTS. 05/25/2024 Other specified disorders of bone density and structure, multiple sites (ICD-10 - M85.89) DISCUSSED OSTEOPENIA AND ITS IMPACT ON HER HEALTH. ADEQUATE CALCIUM AND VIT D. WEIGHT BEARING EXERCISES. WILL CALL PAT WITH RESULTS OF HER LATEST BMD JUST DONE TODAY. Plan Of Treatment Pending Test Test Name Order Date MAMMOGRAM, SCREENING 04/03/2018 MAMMOGRAM, SCREENING 05/17/2020 MAMMOGRAM, SCREENING 05/23/2022 MAMMOGRAM, SCREENING 05/25/2024 THIN PREP,HPV,CHAPARRO IF HPV+ (>29YR)(DIAG) 05/23/2022 THIN PREP,HPV,CHAPARRO IF HPV+ (>29YR)(SCRN) 04/03/2018 BONE DENSITY 05/23/2022 BONE DENSITY 05/17/2020 MM Digital Mammo Screening 05/17/2020 MM Digital Mammo Screening 04/23/2019 MM Digital Mammo Screening 05/23/2022 MM Digital Mammo Screening 05/25/2024 Next Appt Details Provider Name:Lakeshia Evan jane, 06/09/2025 09:40:00 AM, [address], [address], [place], [address], Insurance Providers Payer Name Payer Address Payer Phone Subscriber Number Group Number Insured Name Patient Relationship to Insured Coverage Start Date Coverage End Date BCBS MEDICARE PPO [address] [place] [address] [id number] KATHRINE PACHECO Self - patient is the insured Medical (General) History Medical History History ICD Code Postmenopausal atrophic vaginitis N95.2 Unspecified osteoarthritis, unspecified site M19.90 Hyperlipidemia, unspecified E78.5 Essential (primary) hypertension I10 Hemochromatosis, unspecified E83.119 TGA 03/2015 Other abnormal and inconclusive findings on diagnostic imaging of breast R92.8 Unspecified lump in the right breast, up per outer quadrant N63.11 Induration of breast N64.51 Disorder of bone density and structure, unspecified M85.9 Cystocele, unspecified N81.10 Rectocele N81.6 Surgical History Surgery Date(Month/Year) Knee Surgery 1983 Foot Surgery 1995 Colonoscopy Bilateral Tubal Ligation Total Knee Arthroplasty Left Knee 9 Total Left Hip Replacement 05/11/21 Right Hip Replacement 02/2023 Hospitalization History Reason Date(Month/Year) See Surgical Hx 4 Vaginal Deliveries
== END 2025-02-10 09:08 | disposition home or self-care (01) ==
LOC: HO.BBR 09:07
PROVIDERS: PCP Internal Medicine; Visit Provider Internal Medicine
DX: Z13.89 Encounter for screening for other disorder (principal)

== ENCOUNTER 2025-05-12 09:52 | Outpatient (REF) | payer MEDICARE, SELFPAY ==
--- OUTSIDE RECORDS SUMMARY | 2025-05-12 11:12 | XMS_ITS | Clinical Summary ---
Author Organization [facility] Address [address] [place] [address] Phone Care Team Providers Care Apprise Counselor Name Role Phone Gustavo Kyle MD Primary Care Provider [phone] Allergies No known active allergies Active Problems [...] SIGMOIDOSCOPY 1997 VIRTUAL COLONOSCOPY 1997 OSTEOPOROSIS SCREENING INITIAL (ONE-TIME) 2017 INFLUENZA VACCINE (#1) 2025 0, 2019, 03/17/2018, Additional history exists COVID-19 VACCINE ( - 2024- season) 2025 09/26/2020 RSV VACCINE (1 - 1-dose 75+ [...] [place] Care Teams Apprise Counselor Relationship Specialty Start Date End Date Gustavo Kyle MD [address] [place] [phone] (Work) PCP - General Internal Medicine 03/22/18 Additional Source Comments The information contained in this document represents components of the legal health record. It is not the complete legal health record.[facility]
--- OUTSIDE RECORDS SUMMARY | 2025-05-12 11:12 | XMS_ITS | Clinical Summary ---
Author Organization [facility] Address [address] [place] [address] Phone Care Team Providers Care Sweat Band Sewer Name Role Phone Gustavo Kyle MD Primary Care Provider + [phone] Medications Hospital, Clinic, or Other Facility Administered Medication Ordered Dose Route Frequency Start Date End Date Status sod picosulf-mag ox-citric ac 10 mg-3.5 gram- 12 gram/175 mL solution 175 mLIndications:Change in bowel habit 175 mL oral 2 times daily 09/01/2024 Active Active Problems Problem Noted Date Diagnosed Date DM (diabetes mellitus) (CMS/HCC V24, CMS/[facility] V28 ) Hemochromatosis Assessment & Plan (09/01/2024 8:43 AM EST): Getting phlebotomy [id number] PCP orders Need last lab results HTN (hypertension) Hyperlipidemia Surgical History Surgery Date Site/Laterality Comments COLONOSCOPY 03/08/2020 - 04/06/2020 10 years TOTAL KNEE ARTHROPLASTY Medical History Medical History Date Comments HTN (hypertension) DM (diabetes mellitus) (CMS/HCC V24, CMS/[facility] V28 ) Hyperlipidemia Hemochromatosis Family History Medical [...] 09/01/2024 8:21 AM EST Plan of Treatment Upcoming Encounters Date Type Department Care Team (Late st Contact Info) Description 06/08/2025 8:45 AM EST [facility]ointment [facility] [address] [address] Health Maintenance Due Date Last Done Comments [...] Blood Test 08/06/2024 COVID-19 Vaccine ( season) 2025 05/30/2024, 11/17/2023, 06/13/2022, Additional history exists Influenza [...] no evidence of osteoporosis or osteopenia. Code 00404 CT [facility] -------- FINAL REPORT -------- Dictated By: Brett Pruitt Dictated Date: 05/25/2024 09:17 ET Assigned Physician: Brett Pruitt Reviewed and Electronically Signed By: Brett Pruitt Signed Date: 05/25/2024 09:19 ET Workstation ID: [id number] Transcribed By: Self Edit Transcribed Date: 05/25/2024 09:17 ET Impressions 05/25/2024 9:19 AM EST There is no evidence of osteoporosis or osteopenia. Code 81211 CT Teleradiology -------- FINAL REPORT -------- Dictated By: Brett Pruitt Dictated Date: 05/25/2024 09:17 ET Assigned Physician: Brett Pruitt Reviewed and Electronically Signed By: Brett Pruitt Signed Date: 05/25/2024 09:19 ET Workstation ID: [id number] Transcribed By: Self Edit Transcribed Date: 05/25/2024 [...] no evidence of osteoporosis or osteopenia. Code 77334 CT T[facility]adiology -------- FINAL REPORT -------- Dictated By: Brett Pruitt Dictated Date: 05/25/2024 09:17 ET Assigned Physician: Brett Pruitt Reviewed and Electronically Signed By: Brett Pruitt Signed Date: 05/25/2024 09:19 ET Workstation ID: [id number] Transcribed By: Self Edit Transcribed Date: 05/25/2024 09:17 ET us Gustavo Kyle MD IMG DXA PROCEDURES Edited Re sult - Final * MG Mammo Digital Screening w Zi bilat (05/25/2024 9:12 AM EST) Anatomical Region Laterality Modality Breast Bilateral Mammography 05/25/2024 10:0 6 AM EST Addenda Addendum by Marisa Crar MD on 05/25/2024 10:07 AM EST HISTORY: Screening. COMPARISON: 05/07/23, 05/02/23, 04/30/22, 04/24/21 TECHNIQUE: Bilateral digital breast tomosynthesis was performed in the CC and MLO projections. Computer aided detection with [employer] 3D 3.1 was employed. BREAST DENSITY: B [...] year. Mammo Location: [facility], [address] [place] [address], [address], . -------- FINAL REPORT -------- Dictated By: Marisa Carr Dictated Date: 05/25/2024 10:06 ET Assigned Physician: Marisa Carr Reviewed and Electronically Signed By: Marisa Carr Signed Date: 05/25/2024 10:07 ET Workstation ID: [id number] Transcribed By: Self Edit Transcribed Date: 05/25/2024 [...] year. Mammo Location: [facility], [address] [place] [address], [address], . -------- FINAL REPORT -------- Dictated By: Marisa Carr Dictated Date: 05/25/2024 10:06 ET Assigned Physician: Marisa Carr Reviewed and Electronically Signed By: Marisa Carr Signed Date: 05/25/2024 10:07 ET Workstation ID: [id number] Transcribed By: Self Edit Transcribed Date: 05/25/2024 10:06 ET Narrative 05/25/2024 10:07 AM EST HISTORY: Screening. COMPARISON: 05/07/23, 05/02/23, 04/30/22, 04/24/21 TECHNIQUE: Bilateral digital breast tomosynthesis was performed in the CC and MLO projections. Computer aided detection with [employer] 3D 3.1 was employed. BREAST DENSITY: B [...] Documents on File Type Date Recorded Patient Malter Operator Expl anation Health Care Decision (hx) 05/09/2021 [...] (hx) 05/09/2021 AD CHRISTIE DIRECTIVE Care Teams Sweat Band Sewer Relationship Specialty Start Date End Date Gustavo Kyle MD [address] [place] [address] PCP - General Internal Medicine 07/08/12
--- OUTSIDE RECORDS SUMMARY | 2025-05-12 11:12 | XMS_ITS | Encounter Summary ---
Author Organization [facility] Address [address] [place] [address] Phone Care Team Providers Care Prepress Operator Name Role Phone Gustavo Kyle MD Primary Care Provider [phone] Encounter Details Date Type Department Care Team (Late st Contact Info) Description 03/22/2018 Procedure [facility] [address] [place] [address] Social History Tobacco Use Types Packs/Day Years Used Date Smoking Tobacco: Never Assessed Comments Unknown Sex and Gender Information Value Date Recorded Sex Assigned at Not on file Legal Sex Female 11:31 AM EDT Gender Identity Not on file Sexual Orientation Not on file documented as of this encounter Plan of Treatment Not on file documented as of this encounter Visit Diagnoses Not on filedocumented in this encounter Care Teams Prepress Operator Relationship Specialty Start Date End Date Gustavo Kyle MD [address] [place] [address] PCP - General Internal Medicine 03/22/18 documented as of this encounter Additional Source Comments The information contained in this document represents components of the legal health record. It is not the complete legal health record.[facility]
--- OUTSIDE RECORDS SUMMARY | 2025-05-12 11:12 | XMS_ITS | Encounter Summary ---
Author Organization [facility] Address [address] [place] [address] Care Team Providers Care Manager Testing Name Role Phone Gustavo Kyle MD Primary Care Provider + [phone] Encounter Details Date Type Department Care Team (Late Contact Info) Description 09/29/2024 Lab Requisition [facility] - [facility] Lab [address] [place] [address] Mir Sales MD [address] [address] Diarrhea, unspecified Social History Tobacco Use Types Packs/Day Years Used Date Smoking Tobacco: Never Assessed Comments No Sex and Gender Information Value Date Recorded Sex Assigned at Female 04/29/2024 10:54 AM EDT Legal Sex Female 9:22 AM EST Gender Identity Not on file Sexual Orientation Not on file documented as of this encounter Plan of Treatment Upcoming Encounters Date Type Department Care Team (Late Contact Info) Description 06/08/2025 8:45 AM EST [facility]ointment [facility] [address] [place] [phone] documented as of this encounter Procedures Procedure Name Priority Date/Time Associated Diagnosis Comments TISSUE EXAM Routine 09/29/2024 Diarrhea, unspecified documented in this encounter Results * Tissue Exam (09/29/2024) Final Diagnosis A. Ascending Colon, biopsy: Benign colonic mucosa with no specific pathologic change. No colitis identified. B. Descending Colon, biopsy: Benign colonic mucosa with no specific pathologic change. No colitis identified. 09/30/2024 3:36 PM EDT [facility] Clinical Information Change in bowel habits, chronic diarrhea R/O Microscopic Colitis 09/30/2024 3:36 PM EDT [facility] Gross Description A. Large Intestine, [...] one slide. ALEX 09/30/2024 3:36 PM EDT [facility] Disclaimer Unless otherwise specified, all tissue is 10% NB formalin fixed and paraffin embedded. 09/30/2024 3:36 PM EDT [facility] Tissue Descending colon structure / Unknown 09/29/2024 09/29/2024 4:21 PM EDT Tissue specimen (specimen) Descending colon structure / Unknown 09/29/2024 09/29/2024 4:21 PM EDT us Mir Sales MD LAB PATHOLOGY ORDERABLES Ping bazzi Result [facility] [address] [place] [address], documented in this encounter Visit Diagnoses Diagnosis Diarrhea, unspecified Encounter for screening mammogram for breast cancer documented in this encounter Care Teams Manager Testing Relationship Specialty Start Date End Date Gustavo Kyle MD [address] [place] [address] PCP - General Internal Medicine 07/08/12 documented as of this encounter
--- OUTSIDE RECORDS SUMMARY | 2025-05-12 11:12 | XMS_ITS | Patient Health Record ---
Author Organization [employer] [facility] Address [address] [place] [address] Care Team Providers Care Chemical Production Machine Operator Name Role Phone Gustavo Kyle MD Primary Care Provider Unavail able Lakeshia Sharp Unavailable [phone] Allergies No Known Allergies Results Component Value Reference Range Notes [id number] [id number] No Culture 30 Plus Reviewed date:06/02/2024 04:46:53 PM Interpretation: Performing Lab:[facility] [place], [address], [address], [place], Phone - [phone], Director - [facility] Notes/Report: Clinical Information:Vaginal/Cervical, LMP: Men o [id number] Dates / Results....04/03/18 NIL, Neg HPV Other..............Post Menopausal No. of containers..01 ThinPrep Vial DIAGNOSIS: NEGATIVE FOR IN TRAEPITHELIAL LESION OR MALIGNANCY. Specimen adequacy: Satisfactory for evaluation. Endocervical and/or squamous metaplastic cells (endocervical component) are present. Clinician provided ICD10: Z0 1.419 Performed by: Felicia bazzi, Literacy Coordinator (ASCP) . . Note: The Pap smear [...] [address], [address], [place], Phone - [phone], [facility]/Report: Clinical Information:Vaginal/Cervical, LMP: Men o [id number] Dates / Results....04/03/18 NIL, Neg HPV Other..............Post [...] Status Risk Notes Problem Postmenopausal atrophic vaginitis (82730749) Postmenopausal atrophic vaginitis (N95.2) Active confirmed Problem Incomplete uterovaginal prolapse (179662866) Incomplete uterovaginal prolapse (N81.2) Active confirmed Problem Herniation of rectum into vagina (842519812) Rectocele (N81.6) Active confirmed Problem Cystocele (870278990) Cystocele, unspecified (N81.10) Active confirmed Problem Abnormal findings on diagnostic imaging of breast (727382581) Other abnormal and inconclusive findings on diagnostic imaging of breast (R92.8) Active confirmed Problem Hyperlipidemia (57632589) Other and unspecified hyperlipidemia (272.4) Active confirmed Major Problem Benign essential hypertension (2746938) Essential hypertension, benign (401.1) Active confirmed Major Problem Postmenopausal atrophic vaginitis (93054696) Postmenopausal atrophic vaginitis (627.3) Active confirmed Diag Problem Osteoarthritis (396816497) Osteoarthrosis, unspecified whether generalized or localized, unspecified site (715.90) Active confirmed Major Problem Gynecological examination normal (431047466070790) Routine gynecological examination (V72.31) Active confirmed Major Problem Screening for malignant neoplasm of colon (626131428) Special screening for malignant neoplasms, colon (V76.51) Active confirmed Major Problem Hemochromatosis (006951798) Other hemochromatosis (275.03) Active confirmed Major Vital Signs Temperature 98.1 degrees Fahrenheit 05/25/2024 Blood pressure diastolic 82 mm Hg 05/25/2024 Height 66 in 05/25/2024 Blood pressure systolic 134 mm Hg 05/25/2024 Weight 134 lbs 05/25/2024 BMI 21.63 kg/m2 05/25/2024 Encounters Encounter Location Date Provider Diagnosis [address] [place] [address] 05/25/2024 Lakeshia Sharp Encounter for gynecological examination [...] Name:Lakeshia Evan jane, 06/09/2025 09:40:00 AM, [address], [address], [place], [address], Insurance Providers Payer Name Payer Address Payer Phone Subscriber Number Group Number Insured Name Patient Relationship to Insured Coverage Start Date Coverage End Date BCBS MEDICARE PPO [address] [place] [address] [id number] KATHRINE PACHECO Self - patient is the [...]
== END 2025-05-12 09:53 | disposition home or self-care (01) ==
LOC: HO.BBR 09:52
PROVIDERS: PCP Internal Medicine; Visit Provider Internal Medicine
DX: Z13.89 Encounter for screening for other disorder (principal)